=== PATIENT | male | born 1945 | race Caucasian/White ===

== ENCOUNTER 2020-07-27 17:19 | Emergency (ER) | payer MEDICARE ==
[~2020-07-27] VITALS: Ht 177.8 cm; Wt 71.2 kg
--- NOTE | 2020-07-27 17:21 | NUR ---
EVELYN KIRAN TAKEN TO BED 12
[2020-07-27 17:30] VITALS: BP 141/68
[2020-07-27 17:56] LABS: BASOPHILS % (AUTO) 0.7 % (0.0-2.0); EOSINOPHILS # (AUTO) 0.1 K/uL (0-0.4); EOSINOPHILS % (AUTO) 0.8 % (0.0-4.0); HEMOGLOBIN 13.1 g/dL (12.0-18.0); LYMPHOCYTES # (AUTO) 1.7 K/uL (2.0-11.5); LYMPHOCYTES % (AUTO) 25.3 % (20.5-51.1); MEAN CORPUSCULAR HEMOGLOBIN 31 pg (27-31); MEAN CORPUSCULAR HGB CONC 34 g/dL (33-37); MEAN CORPUSCULAR VOLUME 93.3 fL (80-94); MONOCYTES # (AUTO) 0.6 K/uL (0.8-1.0); MONOCYTES % (AUTO) 9.4 % (1.7-9.3); NEUTROPHILS # (AUTO) 4.3 K/uL (1.8-7.7); NEUTROPHILS % (AUTO) 63.8 % (42.2-75.2); PLATELET COUNT (AUTO) 240 K/uL (140-450); RED BLOOD CELL COUNT(AUTO) 4.18 MIL/uL (4.20-6.10); RED CELL DISTRIBUTION WIDTH 12.8 % (11.6-13.7); WHITE BLOOD COUNT (AUTO) 6.7 K/uL (4.8-10.8)
--- NOTE | 2020-07-27 18:05 | NUR ---
75 Y/O MALE COMPLAINS OF CHEST PAIN X TODAY. PAIN 6/10, DULL, LEFT-SIDED CHEST, INTERMITTENT. PT STATES HE HAS NOT BEEN SLEEPING WELL X 4 NIGHTS DUE TO TINNITUS. DENIES ROA, NAUSEA/VOMITING, SWEATING, SOB. PT ON MONITOR. AO4, BREATHING EVEN AND UNLABORED, SKIN WARM AND DRY. BED IN LOWEST POSITION, LOCKED, X1 SIDERAIL UP. PMH - HTN, PROSTATE ISSUES, TINNITUS NKA
[2020-07-27 18:10] LABS: PROTHROMBIN TIME 10.6 secs (10.8-13.4)
[2020-07-27 18:11] LABS: ANION GAP 8.9 (8-16); ASPARTATE AMINOTRANSFERASE 18 U/L (15-37); CARBON DIOXIDE 29.7 mmol/L (21-32); CHLORIDE 102 mmol/L (98-107); GLUCOSE 118 mg/dL (74-106); POTASSIUM 4.6 mmol/L (3.5-5.1); SODIUM SERUM 136 mmol/L (136-145); TOTAL BILIRUBIN 0.8 mg/dL (0.0-1.0); UREA NITROGEN, BLOOD 15 mg/dL (7-18)
--- NOTE | 2020-07-27 18:11 | NUR ---
PROVIDED UPDATES TO MIKEY CHRIS
[2020-07-27] MEDS ORDERED: ALPR0.2518 PO (19:15)
[2020-07-27 19:41] VITALS: BP 141/68
--- NOTE | 2020-07-27 19:42 | NUR ---
Patient discharged with v/s stable. Written and verbal after care instructions ABOUT TINNITUS AND CHEST PAIN OBSERVATION given and explained IN ESTONIAN. Patient alert, oriented and verbalized understanding of instructions. Ambulatory with steady gait. All questions addressed prior to discharge. ID band removed. Patient advised to follow up with PMD. Rx of ALPRAZOLAM given. Patient educated on indication of medication including possible reaction and side effects. Opportunity to ask questions provided and answered.
== END 2020-07-27 19:41 | disposition home or self-care (01) ==
LOC: MED 17:19
DX: H93.19 Tinnitus, unspecified ear (principal); R07.9 Chest pain, unspecified
CPT/HCPCS: 36415; 71045; 80053; 83880; 84484; 85025; 85379; 85610; 85730; 93005; 99285